=== PATIENT | female | born 1960 | race Caucasian/White ===

== ENCOUNTER 2022-08-17 20:25 | Emergency (ER) | payer SELFPAY ==
[~2022-08-17] VITALS: Ht 165.1 cm; Wt 108.9 kg
[2022-08-17 20:28] VITALS: BP_SYST 138
--- NOTE | 2022-08-17 21:25 | NUR ---
Patient to ER bed 02 to gown for evaluation. Side rails up. Report given to MARITZA COOLEY.
--- NOTE | 2022-08-17 21:29 | NUR ---
PT BIBA, C/O PASSING OUT FOR A MIN AT WORK, PT WAS LOWERED TO GROUND BY COWORKERS, DENIES BUMPS OR NEED FOR AN PAIN RELIEF, PT STATES HAS PAIN TO RIGHT KNEE. BLOOD SUGAR AT SITE 107 ON ARRIVAL 115 PT IN GOWN, CONNECTED TO VS MONITOR SAFETY RAILS UP VSS, NAD, EVEN AND UNLABORED RR.
--- NOTE | 2022-08-17 21:40 | NUR ---
ER at bedside examining patient.
[2022-08-17 22:16] LABS: BASOPHILS # (AUTO) 0.1 K/uL (0.0-0.2); EOSINOPHILS # (AUTO) 0.3 K/uL (0.0-0.4); EOSINOPHILS % (AUTO) 3.6 % (0.0-4.0); HEMATOCRIT 37.3 % (36-48); HEMOGLOBIN 12.5 g/dL (12.0-16.0); LYMPHOCYTES # (AUTO) 2.5 K/uL (1.0-5.5); LYMPHOCYTES % (AUTO) 35.2 % (20.5-51.5); MEAN CORPUSCULAR HEMOGLOBIN 29 pg (27-31); MEAN CORPUSCULAR HGB CONC 34 % (32-36); MEAN CORPUSCULAR VOLUME 85 fL (79.0-98.0); MONOCYTES # (AUTO) 0.7 K/uL (0.0-1.0); MONOCYTES % (AUTO) 9.3 % (1.7-9.3); NEUTROPHILS # (AUTO) 3.5 K/uL (1.8-7.7); NEUTROPHILS % (AUTO) 49.9 % (40.0-70.0); PLATELET COUNT (AUTO) 228 K/uL (130-430); RED BLOOD CELL COUNT(AUTO) 4.38 MIL/uL (4.2-6.2); RED CELL DISTRIBUTION WIDTH 13.4 % (9.0-15.0); WHITE BLOOD COUNT (AUTO) 7.1 K/uL (4.8-10.8)
[2022-08-17 22:25] LABS: ANION GAP 7 (5-15); CALCIUM 8.4 mg/dL (8.4-11.0); CHLORIDE 104 mmol/L (98-107); CREATININE 0.86 mg/dL (0.55-1.30); GFR AFRICAN AMERICAN 86 mL/min (>90); GLUCOSE 92 mg/dL (70-99); UREA NITROGEN, BLOOD 16 mg/dL (8-21)
[2022-08-17 22:31] LABS: ALANINE AMINOTRANSFERASE 10 U/L (12-78); ALBUMIN 3.6 g/dL (3.4-4.8); ASPARTATE AMINOTRANSFERASE 12 U/L (10-37); TOTAL BILIRUBIN 0.3 mg/dL (0.0-1.0)
[2022-08-18 00:55] VITALS: BP_SYST 131
--- NOTE | 2022-08-18 01:04 | NUR ---
Patient given written and verbal discharge instructions and verbalizes understanding. ER MD discussed with patient the results and treatment provided. Patient in stable condition. ID arm band removed. Patient educated on [facility] and to follow up with PMD. Opportunity for questions provided and answered. Medication side effect fact sheet provided.
== END 2022-08-18 01:04 | disposition home or self-care (01) ==
LOC: SED 20:25
DX: R55 Syncope and collapse (principal); Z88.6 Allergy status to analgesic agent; Z79.899 Other long term (current) drug therapy
CPT/HCPCS: 36415; 80053; 84484; 85025; 93005; 99284